=== PATIENT | female | born 1980 | race Caucasian/White ===

== ENCOUNTER → 2017-04-01 | Outpatient (CLI) | payer OTHER ==
--- NOTE | 2017-04-01 10:29 | RADIOLOGY REPORT (SQ) ---
EXAM DESCRIPTION: MRI HEAD WITHOUT COMPLETED DATE/TIME: 04/01/2017 9:40 am REASON FOR STUDY: DIZZINESS AND GIDDINESS R42 DIZZINESS AND GIDDINESS COMPARISON: None. TECHNIQUE: Multiplanar imaging includes non-contrasted T1, T2, FLAIR, and diffusion with ADC map seq uences. Images stored on PACS. LIMITATIONS: None. FINDINGS: ANATOMY: No anomalies. Normal vascular flow voids. Pituitary fossa normal. CSF SPACES: Normal in size and contour. No hemorrhage. CEREBRUM: Sulci and gyri normal in size and contour. Normal white matter signal on FLAIR imaging. No evidence of hemorrhage, mass, or extraaxial fluid collection. POSTERIOR FOSSA: No signal alteration. No hemorrhage. No edema, masses or mass effect. Internal timothy tory canals, cerebello-pontine angles, mastoids normal. DIFFUSION IMAGING: Negative for acute or sub-acute infarction. ORBITS: No masses. Globes normal. PARANASAL SINUSES: No fluid levels. Mucosa normal. OTHER: No other significant finding. IMPRESSION: NORMAL MRI OF THE BRAIN WITHOUT INTRAVENOUS GADOLINIUM CONTRAST. EVIDENCE OF ACUTE STROKE: NO. TECHNICAL DOCUMENTATION: JOB ID: [id number] [email or web address] All Rights Reserved
== END ==
LOC: RAD 08:59
PROVIDERS: ATTEND Nurse Practitioner
DX: R42 Dizziness and giddiness (principal)
CPT/HCPCS: 70551

== ENCOUNTER 2018-02-05 15:50 | Emergency (ER) | payer OTHER ==
[2018-02-05] MEDS ORDERED: PREDNISONE 20 MG TABLET PO ONE (16:10)
--- NOTE | 2018-02-05 16:18 | ER Document Report ---
ED Allergic Reaction - General Chief Complaint: Allergic Reaction Stated Complaint: POSSIBLE ALLERGIC REACTION Time Seen by Provider: 02/05/18 16:01 Mode of Arrival: Ambulatory Information source: Patient TRAVEL OUTSIDE OF THE [place] IN LAST 30 DAYS: No - HPI Patient complains to provider of: possible allergic reaction Onset: Yesterday Notes: Patient is here with complaints of possible allergic reaction. She states that she believes she was bit by something on her left upper arm yesterday. The area was somewhat itchy and she took some Claritin yesterday and states that her symptoms went away. She states that this afternoon she started to get itchy again and felt like her throat may have been closing up so she took Claritin and symptoms resolved. No chest pain or shortness of breath. No nausea, vomiting, diarrhea. No abdominal pain at this time. No significant rash. No chronic medical problems. She takes daily multivitamins but no other daily medications. No numbness, tingling, weakness. No other complaints at this time. - Related Data Allergies/Adverse Reactions: Penicillins Allergy (Verified 02/05/18 15:51) Past Medical History - Social History Smoking Status: Never Smoker Chew tobacco use (# tins/day): No Frequency of alcohol use: Occasional Drug Abuse: None Family History: Reviewed & Not Pertinent Patient has suicidal ideation: No Patient has homicidal ideation: No Renal/ Medical History: Denies: Hx Peritoneal Dialysis Past Surgical History: Reports: Hx Section Review of Systems - Review of Systems -: Yes All other systems reviewed and negative Physical Exam - Vital signs Vitals: Temp Pulse Resp BP Pulse Ox 99.3 F 105 H 20 136/98 H 98 02/05/18 15:55 02/05/18 15:55 02/05/18 15:55 02/05/18 15:55 02/05/18 15:55 - Notes Notes: GENERAL: alert, cooperative, nontoxic, no distress. HEAD: normocephalic, atraumatic EYES: conjunctiva pink without discharge, no external redness or swelling. EARS: no external swelling, no external redness NOSE: atraumatic, no external swelling MOUTH/THROAT: mucous membranes moist and pink, posterior pharynx without erythema, swelling, exudate. No trismus or drooling. Voice is normal. No swelling. No stridor. NECK: soft, supple, full range of motion, no meningismus. CHEST: no distress, lungs clear and equal throughout. No wheezing, rales, rhonchi. CARDIAC: regular rate and rhythm, no murmur, normal capillary refill, normal pulses. No peripheral edema noted. ABDOMEN: Soft, nontender. BACK: full range of motion, no CVA tenderness. EXTREMITIES: full range of motion of all extremities. No redness, no swelling. NEURO: alert and oriented x 3, no focal deficits, full range of motion of all extremities. PYSCH: appropriate mood, affect. Patient is cooperative. SKIN: pink, warm, dry, no rash. Small scabbed area to the left upper arm. No surrounding redness or tenderness. No fluctuance. Course - Re-evaluation Re-evalutation: 02/05/18 16:15 Patient is nontoxic-appearing with stable vitals. Patient believes that she was bit by an insect yesterday on her left upper arm and thinks she may be expansion allergic reaction to it. She states he had some itching yesterday and took a Claritin seemed to resolve the symptoms. Started to have itching again today and then felt like her throat may have been closing. She states she took another Claritin and the symptoms have resolved. It is possible that she is having a delayed allergic reaction to the insect bite or that her antihistamine medication and just worn off and she was having continued allergic reaction. At this point since she is symptom-free she does not require any immediate interventions. I will give her a dose of prednisone at this time and will discharge her home on 5 days of prednisone. She was instructed to continue taking Claritin every 24 hours. She was also instructed that she could take Benadryl before going to bed. She instructed to drink plenty of fluids. To follow-up if not improving in the next 2-3 days, and to return or call 911 if she feels like symptoms are worsening in any way. The patient is noted to have elevated blood pressure during today's emergency department visit. The patient was informed of this finding. The patient was instructed that this may be related to pre-hypertension and requires further evaluation with a primary care provider. The patient has no hypertensive symptoms at this time. The patient's emergency department workup and current diagnosis were explained to the patient and or family. Follow-up instructions were provided. Medications if prescribed were discussed. Instructions for when to return to the emergency department including specific worrisome symptoms were discussed with the patient and/or family. - Vital Signs Vital signs: Temp Pulse Resp BP Pulse Ox 99.3 F 105 H 20 136/98 H 98 02/05/18 15:55 02/05/18 15:55 02/05/18 15:55 02/05/18 15:55 02/05/18 15:55 Discharge - Discharge Clinical Impression: Allergic reaction Qualifiers: Encounter type: initial encounter Qualified Code(s): T78.40XA - Allergy, unspecified, initial encounter Condition: Stable Disposition: HOME, SELF-CARE Instructions: Acute Allergic Reaction ([facility]) Additional Instructions: Take medications as prescribed. Continue to take Claritin every 24 hours. You may also take a Benadryl at night before going to bed. Drink plenty fluids. Follow-up if not improving in the next 2-3 days, follow-up sooner, return the emergency department, or call 911 for any worsening symptoms. Your blood pressure was elevated during today's visit. Have this rechecked with your doctor. Prescriptions: Prednisone [Deltasone 20 mg Tablet] 3 tab PO DAILY 5 Days tablet Forms: Elevated Blood Pressure, Smoking Cessation Education Referrals: XIANG LIM NP-C [Primary Care Provider] - Follow up as needed
[2018-02-05 17:16] VITALS: BP 141/86
== END 2018-02-05 17:15 | disposition home or self-care (01) ==
LOC: ER 15:50
DX: T78.40XA Allergy, unspecified, initial encounter (principal); R03.0 Elevated blood-pressure reading, without diagnosis of hypertension; X58.XXXA Exposure to other specified factors, initial encounter
CPT/HCPCS: 99283; J7512

== ENCOUNTER → 2019-05-01 | Outpatient (CLI) | payer OTHER ==
--- NOTE | 2019-05-01 09:29 | RADIOLOGY REPORT (SQ) ---
EXAM DESCRIPTION: KUB COMPLETED DATE/TIME: 05/01/2019 9:15 am REASON FOR STUDY: LLQ ABD. PAIN R10.32 LEFT LOWER QUADRANT PAIN COMPARISON: None. NUMBER OF VIEWS: One view. TECHNIQUE: Supine radiographic image of the abdomen acquired. LIMITATIONS: None. FINDINGS: BOWEL GAS PATTERN: Normal bowel gas pattern. No dilated loops. Formed stool within the as cending and transverse colon. CALCIFICATIONS: No suspicious calcifications. Scattered pelvic phleboliths. SOFT TISSUES: No gross mass or suggestion of organomegaly. HARDWARE: None in the abdomen. BONES: No acute fracture. No worrisome bone lesions. OTHER: No other significant finding. IMPRESSION: No evidence of intestinal obstruction or other acute intra-abdominal process. Moderate formed fecal material within the ascending and transverse colon. TECHNICAL DOCUMENTATION: JOB ID: [id number] [email or web address]- All Rights Reserved Reading location - IP/workstation name: [email or web address]
== END ==
LOC: OD 09:05
PROVIDERS: ATTEND Nurse Practitioner Family
DX: R10.32 Left lower quadrant pain (principal)
CPT/HCPCS: 74018